=== PATIENT | female | born 1940 | race African-American/Black ===

== ENCOUNTER 2016-09-05 21:34 | Inpatient (IN) | payer MEDICARE, OTHER ==
[2016-09-05] MEDS ORDERED: ACETAMINOPHEN 325 MG TABLET PO ONE (22:08)
[2016-09-05] MEDS ORDERED: ACETAMINOPHEN 325 MG TABLET ONE (22:13)
[2016-09-06] MEDS ORDERED: CEFTRIAXONE 1 GM/D5W RTU 50 ML IV ONE (00:21)
--- NOTE | 2016-09-06 00:22 | ER Document Report ---
ED GI/ - General Mode of Arrival: Wheelchair Information source: Patient TRAVEL OUTSIDE OF THE [place] IN LAST 30 DAYS: No - HPI Patient complains to provider of: Abdominal pain, Flank pain Onset: Other - Refer to HPI notes Associated symptoms: Chills, Fever, Loss of appetite, Odor - urine Similar symptoms previously: No Recently seen / treated by doctor: No <JENA MCCABE - Last Filed: 09/06/16 00:40> <SHERRIE EDMOND - Last Filed: 09/06/16 01:47> <EFFIE DYSON - Last Filed: 09/06/16 08:07> - General Chief Complaint: Fever Stated Complaint: FEVER/CHILLS/POSSIBLE HIGH BLOOD SUGAR Time Seen by Provider: 09/06/16 00:15 Notes: Patient is a 75 year old female presenting to the emergency department for right flank pain and right sided abdominal pain. Patient's symptoms have been onset for 3-4 days. Patient also has had a decreased appetite, increased blood glucose levels, fevers, chills, and an odor to her urine. Patient denies any nausea, vomiting or diarrhea. Patient has a history of UTI and kidney infections , type II diabetes mellitus, cholecystectomy, and hysterectomy. Patient has no known drug allergies. Patient's primary care physician is Dmitri Shaw. (JENA MCCABE) - Related Data Allergies/Adverse Reactions: No Known Allergies Allergy (Verified 08/05/11 15:38) Past Medical History - General Information source: Patient - Social History Smoking Status: Never Smoker Cigarette use (# per day): No Chew tobacco use (# tins/day): No Frequency of alcohol use: None Drug Abuse: None Family History: None Patient has suicidal ideation: No Patient has homicidal ideation: No - Past Medical History Cardiac Medical History: Reports: Hx Hypercholesterolemia, Hx Hypertension Endocrine Medical History: Reports: Hx Diabetes Mellitus Type 2 Renal/ Medical History: Reports: Other - UTI/Kidney infection Past Surgical History: Reports: Hx Cholecystectomy, Hx Hysterectomy, Hx Orthopedic Surgery - "Rods in back" - Immunizations Immunizations up to date: Yes Hx Diphtheria, Pertussis, Tetanus Vaccination: Yes - unknown <JENA MCCABE - Last Filed: 09/06/16 00:40> Review of Systems - Review of Systems Constitutional: See HPI, Chills, Fever EENT: No symptoms reported Cardiovascular: No symptoms reported Respiratory: No symptoms reported Gastrointestinal: See HPI, Abdominal pain, Poor appetite Genitourinary: See HPI, Flank pain Female Genitourinary: No symptoms reported Musculoskeletal: No symptoms reported Skin: No symptoms reported Hematologic/Lymphatic: No symptoms reported Neurological/Psychological: No symptoms reported -: Yes All other systems reviewed and negative <ELIOTJENA - Last Filed: 09/06/16 00:40> Physical Exam - Vital signs Interpretation: Hypertensive, Febrile - General General appearance: Appears well, Alert In distress: Mild - HEENT Head: Normocephalic, Atraumatic Eyes: Normal Pupils: PERRL Mucous membranes: Moist - Respiratory Respiratory status: No respiratory distress Chest status: Nontender Breath sounds: Normal Chest palpation: Normal - Cardiovascular Rhythm: Regular Heart sounds: Normal auscultation Murmur: No - Abdominal Inspection: Normal Distension: No distension Bowel sounds: Normal Tenderness: Tender - right upper quadrant tenderness to palpation Organomegaly: No organomegaly - Back Back: Normal, CVA tenderness - right sided - Extremities General upper extremity: Normal inspection, Normal ROM, Normal strength General lower extremity: Normal inspection, Normal ROM, Normal strength. No: Edema - Neurological Neuro grossly intact: Yes Cognition: Normal Orientation: AAOx4 Gaylord Coma Scale Eye Opening: Spontaneous Chel Coma Scale Verbal: Oriented Gay[place] Coma Scale Motor: Obeys Commands Chel Coma Scale Total: 15 Speech: Normal - Psychological Associated symptoms: Normal affect, Normal mood - Skin Skin Temperature: Warm Skin Moisture: Dry <JENA MCCABE - Last Filed: 09/06/16 00:40> Course - Laboratory Result Diagrams: 09/06/16 00:20 09/06/16 00:20 <ELIOTJENA - Last Filed: 09/06/16 00:40> - Laboratory Result Diagrams: 09/06/16 00:20 09/06/16 00:20 - EKG Interpretation by Sc EKG shows normal: Sinus rhythm, [place], Intervals, QRS Complexes, ST-T Waves Rate: Normal - 76 Rhythm: NSR <SHERRIE EDMOND - Last Filed: 09/06/16 01:47> - Laboratory Result Diagrams: 09/06/16 00:20 09/06/16 00:20 <EFFIE DYSON - Last Filed: 09/06/16 08:07> - Re-evaluation Re-evalutation: 09/06/16 08:06 Patient was signed out to me by Dr. Herrera requesting admission to the hospitalist service for fever and possible pyelonephritis. Discussed with Dr. Cerda with admit the patient to the telemetry unit at this time. Patient was on my independent examination states feeling better still having right flank pain (EFFIE DYSON) - Vital Signs Vital signs: Temp Pulse Resp BP Pulse Ox 97.5 F 71 18 112/59 L 96 09/06/16 07:23 09/06/16 07:23 09/06/16 07:23 09/06/16 07:23 09/06/16 07:23 - Laboratory Laboratory results interpreted by me: 09/06/16 09/06/16 09/06/16 00:20 00:20 00:20 RBC 3.70 L Hgb 11.7 L Hct 34.6 L Seg Neutrophils % 88.9 H Lymphocytes % 5.4 L Absolute Lymphocytes 0.4 L BUN 32 H Est GFR (Non-Af Amer) 51 L Glucose 208 H POC Glucose AST 44 H Urine Protein 100 H Urine Ketones TRACE H Urine Blood MODERATE H Ur Leukocyte Esterase LARGE H 09/06/16 00:37 RBC Hgb Hct Seg Neutrophils % Lymphocytes % Absolute Lymphocytes BUN Est GFR (Non-Af Amer) Glucose POC Glucose 187 H AST Urine Protein Urine Ketones Urine Blood Ur Leukocyte Esterase Discharge <JENA MCCABE - Last Filed: 09/06/16 00:40> <SHERRIE EDMOND - Last Filed: 09/06/16 01:47> - Discharge Admitting Provider: [facility] Unit Admitted: Telemetry <EFFIE DYSON - Last Filed: 09/06/16 08:07> - Discharge Clinical Impression: Pyelonephritis Fever Qualifiers: Fever type: unspecified Qualified Code(s): R50.9 - Fever, unspecified Condition: Stable Disposition: ADMITTED INPATIENT Referrals: DMITRI SHAW MD [Primary Care Provider] - Follow up as needed Scribe Documentation - Scribe Written by Scribe:: Ted Simons, 09/06/16 00:45 acting as scribe for :: Sanjuanita <JENA MCCABE - Last Filed: 09/06/16 00:40>
[2016-09-06 00:51] LABS: PROTHROMBIN TIME 13.9 SEC (11.4-15.4)
[2016-09-06 00:53] LABS: ABSOLUTE LYMPHOCYTES (AUTO) 0.4 10^3/uL (0.5-4.7); ABSOLUTE MONOCYTES (AUTO) 0.4 10^3/uL (0.1-1.4); ABSOLUTE NEUT (AUTO) 7.1 10^3/uL (1.7-8.2); BASOPHILS % (AUTO) 0.2 % (0-2); EOSINOPHILS % (AUTO) 0.1 % (0-6); HEMATOCRIT 34.6 % (36.0-47.0); HEMOGLOBIN 11.7 g/dL (12.0-15.5); HGB HCT DIFFERENCE 0.5; LYMPHOCYTES % (AUTO) 5.4 % (13-45); MEAN CORPUSCULAR HEMOGLOBIN 31.5 pg (27.0-33.4); MEAN CORPUSCULAR HGB CONC 33.7 g/dL (32.0-36.0); MEAN CORPUSCULAR VOLUME 93 fl (80-97); MONOCYTES % (AUTO) 5.4 % (3-13); RED CELL DISTRIBUTION WIDTH 13.9 % (11.5-14.0); SEGMENTED NEUTROPHILS % (AUTO) 88.9 % (42-78)
[2016-09-06 01:06] LABS: APPEARANCE,URINE CLOUDY; BILIRUBIN,URINE NEGATIVE (NEGATIVE); GLUCOSE, URINE NEGATIVE (NEGATIVE); KETONES,URINE TRACE mg/dL (NEGATIVE); LEUKOCYTE ESTERASE,URINE LARGE (NEGATIVE); NITRITE,URINE NEGATIVE (NEGATIVE); PROTEIN,URINE 100 mg/dL (NEGATIVE); URINE SPECIFIC GRAVITY 1.015; UROBILINOGEN,URINE NEGATIVE mg/dL (<2.0)
[2016-09-06 01:12] LABS: ALANINE AMINOTRANSFERASE 34 U/L (9-52); ALBUMIN 3.5 g/dL (3.5-5.0); ALKALINE PHOSPHATASE 95 U/L (38-126); ANION GAP 10 (5-19); ASPARTATE AMINO TRANSFERASE 44 U/L (14-36); BILIRUBIN,DIRECT 0.4 mg/dL (0.0-0.4); BILIRUBIN,TOTAL 0.9 mg/dL (0.2-1.3); BLOOD UREA NITROGEN 32 mg/dL (7-20); CALCIUM 9.6 mg/dL (8.4-10.2); CARBON DIOXIDE 24 mmol/L (22-30); CHLORIDE 104 mmol/L (98-107); CREATININE RESULT 1.05 mg/dL (0.52-1.25); GLUCOSE 208 mg/dL (75-110); POTASSIUM 4.5 mmol/L (3.6-5.0); SODIUM 138.1 mmol/L (137-145)
[2016-09-06] MEDS ORDERED: NORMAL SALINE 1000 ML 1,000 ML IV ONE (01:24)
[2016-09-06] MEDS ORDERED: ACETAMINOPHEN 325 MG TABLET PO ONE (05:36)
[2016-09-06] MEDS ORDERED: NORMAL SALINE 1000 ML 1,000 ML IV PRN (09:35)
[2016-09-06] MEDS ORDERED: ONDANSETRON HCL INJ/PF 4 MG/2 ML SDV IV PRN (09:35)
--- NOTE | 2016-09-06 09:52 | PDOC H&P ---
History of Present Illness Admission Date/PCP: 09/06/16 08:21 DMITRI ANGELES MD Patient complains of: Flank pain History of Present Illness: BRIANNA COOL is a 75 year old female with hypertension and diabetes, started to develop flank pain of about 4 days duration with associated urinary urgency as well as chills or fever. There is no nausea or vomiting. There is no diarrhea. No vaginal discharge or bleeding. Patient had frequent urinary tract infections in the past. Patient went to the emergency room due to persistence of symptoms. Patient denies any hematuria at all. Patient was given intravenous fluids and intravenous antibiotic and felt better. Fever was noted to be 102. She was then referred for admission. Past Medical History Past Medical History: Medication reconciliation pending verification from the patient's pharmacist Cardiac Medical History: Reports: Hyperlipidema, Hypertension Endocrine Medical History: Reports: Diabetes Mellitus Type 2 Renal/ Medical History: Reports: Other - UTI/Kidney infection Past Surgical History Past Surgical History: Reports: Cholecystectomy, Hysterectomy, Orthopedic Surgery - "Rods in back" Social History Information Source: Patient Smoking Status: Never Smoker Frequency of Alcohol Use: None Hx Recreational Drug Use: No Drugs: None Family History Family History: None Parental Family History Reviewed: Yes Children Family History Reviewed: Yes Sibling(s) Family History Reviewed.: Yes Medication/Allergy Home Medications: Glimepiride [Amaryl 4 Mg Tablet] 4 mg PO DAILY 08/05/11 Metformin HCl [Glumetza] 500 mg PO BID 08/05/11 Telmisartan [Micardis] 40 mg PO DAILY 08/05/11 Levofloxacin [Levaquin 500 mg Tablet] 500 mg PO DAILY #7 tablet 01/21/14 Phenazopyridine HCl [Pyridium 200 mg Tablet] 200 mg PO TID #15 tablet 01/21/14 Allergies/Adverse Reactions: No Known Allergies Allergy (Verified 08/05/11 15:38) Review of Systems Constitutional: PRESENT: chills, fever(s). ABSENT: headache(s), weight gain, weight loss Eyes: ABSENT: visual disturbances Ears: ABSENT: hearing changes Nose, Mouth, and Throat: ABSENT: mouth pain, sore throat Cardiovascular: ABSENT: chest pain, dyspnea on exertion, edema, orthropnea, palpitations Respiratory: ABSENT: cough, dyspnea, hemoptysis Gastrointestinal: PRESENT: abdominal pain - Right flank. ABSENT: constipation, diarrhea, hematemesis, hematochezia, melena, nausea, vomiting Genitourinary: PRESENT: difficulty urinating, dysuria. ABSENT: hematuria Musculoskeletal: ABSENT: joint swelling Integumentary: ABSENT: pruritus, rash, wounds Neurological: ABSENT: abnormal gait, abnormal speech, confusion, dizziness, focal weakness, syncope Psychiatric: ABSENT: anxiety, depression, homidical ideation, suicidal ideation Endocrine: ABSENT: cold intolerance, heat intolerance, polydipsia, polyuria Hematologic/Lymphatic: ABSENT: easy bleeding, easy bruising Physical Exam Vital Signs: Temp Pulse Resp BP Pulse Ox 97.5 F 71 18 112/59 L 96 09/06/16 07:23 09/06/16 07:23 09/06/16 07:23 09/06/16 07:23 09/06/16 07:23 General appearance: PRESENT: no acute distress, cooperative Head exam: PRESENT: atraumatic, normocephalic Eye exam: PRESENT: conjunctiva pink, EOMI, PERRLA. ABSENT: scleral icterus Ear exam: PRESENT: normal external ear exam Mouth exam: PRESENT: moist, neck supple, tongue midline Neck exam: ABSENT: carotid bruit, JVD, lymphadenopathy, thyromegaly Respiratory exam: PRESENT: clear to auscultation ela. ABSENT: rales, rhonchi, wheezes Cardiovascular exam: PRESENT: RRR. ABSENT: diastolic murmur, rubs, systolic murmur Pulses: PRESENT: normal dorsalis pedis pul Vascular exam: PRESENT: normal capillary refill GI/Abdominal exam: PRESENT: normal bowel sounds, soft, tenderness - CVA tenderness noted on the right. ABSENT: distended, guarding, mass, organolmegaly , rebound Rectal exam: PRESENT: deferred Extremities exam: PRESENT: full ROM, other - Trace pretibial edema. ABSENT: calf tenderness, clubbing Neurological exam: PRESENT: alert, awake, oriented to person, oriented to place , oriented to time, oriented to situation, CN II-XII grossly intact. ABSENT: motor sensory deficit Psychiatric exam: PRESENT: appropriate affect, normal mood. ABSENT: homicidal ideation, suicidal ideation Skin exam: PRESENT: dry, intact, warm. ABSENT: cyanosis, rash Assessment & Plan - Diagnosis (1) Pyelonephritis Is this a current diagnosis for this admission?: Yes (2) Essential hypertension Is this a current diagnosis for this admission?: Yes (3) Hyperlipidemia Qualifiers: Hyperlipidemia type: unspecified Qualified Code(s): E78.5 - Hyperlipidemia, unspecified Is this a current diagnosis for this admission?: Yes (4) Type 2 diabetes mellitus Qualifiers: Diabetes mellitus complication status: with unspecified complications Diabetes mellitus detention insulin use: without detention use Qualified Code(s): E11.8 - Type 2 diabetes mellitus with unspecified complications - Time Time Spent: 30 to 50 Minutes - Plan Summary Plan Summary: Patient will be admitted to observation. I will gently hydrate the patient with normal saline. Urine culture will be done and patient will be given intravenous antibiotic with Invanz. DVT prophylaxis with Lovenox will be placed. Analgesics and antipyretics will be administered. Further testing depends on the initial evaluations outlined above.
[2016-09-06] MEDS ORDERED: (PENDING PHARMACY ID) (Telmisartan [Micardis 40 Mg Tablet] 40 MG) PO SCH (10:00)
[2016-09-06] MEDS ORDERED: ERTAPENEM SODIUM INJ 1 GM VIAL IV SCH (10:00)
--- NOTE | 2016-09-06 10:46 | EKG REPORT ---
SEVERITY:- NORMAL ECG - SINUS RHYTHM : Confirmed by: Mike Reeves 06-Sep-2016 10:45:53
[2016-09-06] MEDS ORDERED: ENOXAPARIN SODIUM INJ 40 MG/0.4 ML DISP.SYRIN SUBCUT ONE (12:00)
[2016-09-06] MEDS: LOSARTAN POTASSIUM 50 MG TABLET PO SCH (13:02)
[2016-09-06] MEDS ORDERED: DEXTROSE 40% GEL 15 GM TUBE X 2 PO PRN (15:48)
[2016-09-06] MEDS ORDERED: GLUCAGON,HUMAN RECOMB 1 MG INJ IM PRN (15:48)
[2016-09-06] MEDS ORDERED: DEXTROSE 50%-WATER SYRINGE 12.5 GM/25 ML DOSE IV PRN (15:48)
[2016-09-06] MEDS ORDERED: DEXTROSE 40% GEL 15 GM TUBE PO PRN (15:48)
[2016-09-06] MEDS ORDERED: DEXTROSE 50%-WATER SYRINGE 25 GM/50 ML DOSE IV PRN (15:48)
[2016-09-06] MEDS: DOCUSATE SODIUM 100 MG CAPSULE PO SCH (18:11)
[2016-09-06] MEDS: ACETAMINOPHEN 325 MG TABLET PO PRN (20:11)
[2016-09-07 05:59] LABS: ANION GAP 10 (5-19); BLOOD UREA NITROGEN 19 mg/dL (7-20); CALCIUM 9.1 mg/dL (8.4-10.2); CARBON DIOXIDE 23 mmol/L (22-30); CHLORIDE 109 mmol/L (98-107); CREATININE RESULT 0.77 mg/dL (0.52-1.25); GLUCOSE 184 mg/dL (75-110); POTASSIUM 4.5 mmol/L (3.6-5.0); SODIUM 142.4 mmol/L (137-145)
[2016-09-07] MEDS: LANSOPRAZOLE 30 MG TAB.RAP.DR PO SCH (06:13)
[2016-09-07] MEDS: INSULIN REG, HUMAN 100 UNIT/ML 3 ML VIAL (PYX) SUBCUT PRN ×2 (08:29→12:37)
[2016-09-07] MEDS: ENOXAPARIN SODIUM INJ 40 MG/0.4 ML DISP.SYRIN SUBCUT SCH (08:30)
[2016-09-07] MEDS: ACETAMINOPHEN 325 MG TABLET PO PRN (08:52)
[2016-09-07] MEDS: DOCUSATE SODIUM 100 MG CAPSULE PO SCH ×2 (09:35→17:01)
[2016-09-07] MEDS: CEFTRIAXONE 1 GM/D5W RTU 50 ML IV SCH (09:35)
--- NOTE | 2016-09-07 11:07 | PDOC PROGRESS REPORT ---
Subjective Progress Note for:: 09/07/16 Subjective:: Patient still has the flank pain but less. Still with fever last night but trending down. Denies any diarrhea. Tolerating oral intake well. No nausea or vomiting, no shortness of breath, no PND orthopnea. Physical Exam Vital Signs: Temp Pulse Resp BP Pulse Ox 99.0 F 62 18 158/62 H 100 09/07/16 07:30 09/07/16 07:30 09/07/16 07:30 09/07/16 07:30 09/07/16 07:30 Intake & Output 09/06/16 09/07/16 09/08/16 06:59 06:59 06:59 Intake Total 1441 Balance 1441 Weight 63 kg General appearance: PRESENT: no acute distress, cooperative Head exam: PRESENT: normocephalic Mouth exam: PRESENT: moist, neck supple Neck exam: ABSENT: JVD Respiratory exam: PRESENT: clear to auscultation ela. ABSENT: rhonchi, wheezes Cardiovascular exam: PRESENT: RRR. ABSENT: gallop GI/Abdominal exam: PRESENT: soft, other - CVA tenderness on the right, mild. ABSENT: distended, tenderness Extremities exam: ABSENT: pedal edema Neurological exam: PRESENT: alert, awake, oriented to situation Skin exam: PRESENT: dry, warm. ABSENT: cyanosis Results Laboratory Results: 09/07/16 05:21 09/07/16 05:21 Sodium 142.4 Potassium 4.5 Chloride 109 H Carbon Dioxide 23 Anion Gap 10 BUN 19 Creatinine 0.77 Est GFR ( Amer) > 60 Est GFR (Non-Af Amer) > 60 Glucose 184 H Calcium 9.1 Assessment & Plan - Diagnosis (1) Pyelonephritis Is this a current diagnosis for this admission?: Yes (2) Essential hypertension Is this a current diagnosis for this admission?: Yes (3) Hyperlipidemia Qualifiers: Hyperlipidemia type: unspecified Qualified Code(s): E78.5 - Hyperlipidemia, unspecified Is this a current diagnosis for this admission?: Yes (4) Type 2 diabetes mellitus Qualifiers: Diabetes mellitus complication status: with unspecified complications Diabetes mellitus long term care pharmacist insulin use: without long term care pharmacist use Qualified Code(s): E11.8 - Type 2 diabetes mellitus with unspecified complications; Z79.4 - director long term care (current) use of insulin - Time Time Spent with patient: 15-24 minutes - Plan Summary Plan Summary: Continue current antibiotics. Continue gentle IV hydration. Continue supportive care. Recheck electrolytes in the morning. If patient is afebrile, we will discharge in the morning.
[2016-09-07] MEDS: LOSARTAN POTASSIUM 50 MG TABLET PO SCH (12:37)
[2016-09-07] MEDS: TRAMADOL HCL 50 MG TABLET PO PRN (19:46)
[2016-09-08] MEDS: TRAMADOL HCL 50 MG TABLET PO PRN (02:29)
[2016-09-08 05:24] LABS: ANION GAP 10 (5-19); BLOOD UREA NITROGEN 13 mg/dL (7-20); CALCIUM 8.8 mg/dL (8.4-10.2); CARBON DIOXIDE 21 mmol/L (22-30); CHLORIDE 110 mmol/L (98-107); CREATININE RESULT 0.68 mg/dL (0.52-1.25); GLUCOSE 149 mg/dL (75-110); POTASSIUM 4.1 mmol/L (3.6-5.0); SODIUM 141.2 mmol/L (137-145)
[2016-09-08] MEDS: LANSOPRAZOLE 30 MG TAB.RAP.DR PO SCH (06:41)
[2016-09-08] MEDS: CEFTRIAXONE 1 GM/D5W RTU 50 ML IV SCH (09:11)
[2016-09-08] MEDS: ENOXAPARIN SODIUM INJ 40 MG/0.4 ML DISP.SYRIN SUBCUT SCH (09:12)
[2016-09-08] MEDS: DOCUSATE SODIUM 100 MG CAPSULE PO SCH (09:12)
--- NOTE | 2016-09-08 12:09 | PDOC DISCHARGE SUMMARY ---
General - Admit/Disc Date/PCP Admission Date/Primary Care Provider: 09/07/16 14:24 DMITRI ANGELES MD Discharge Date: 09/08/16 - Discharge Diagnosis (1) Pyelonephritis Is this a current diagnosis for this admission?: Yes (2) Essential hypertension Is this a current diagnosis for this admission?: Yes (3) Hyperlipidemia Is this a current diagnosis for this admission?: Yes - Additional Information Resuscitation Status: Full Code Discharge Diet: Cardiac - Low-fat low-salt, Diabetic - no concentrated sweets Discharge Activity: Activity As Tolerated, Balance Activity w/Rest, Slowly Increase Activity Home Medications: Donepezil HCl [Aricept] 10 mg PO QHS 09/06/16 Glyburide [Diabeta 5 mg Tablet] 5 mg PO BID 09/06/16 Metformin HCl [Glucophage] 500 mg PO BID 09/06/16 Pravastatin Sodium [Pravachol] 20 mg PO QHS 09/06/16 Telmisartan [Micardis 40 mg Tablet] 40 mg PO DAILY 09/06/16 Ciprofloxacin HCl [Cipro 500 mg Tablet] 500 mg PO BID #22 tablet 09/08/16 Tramadol HCl [Ultram 50 mg Tablet] 50 mg PO Q6HP PRN #20 tablet 09/08/16 History of Present Illness Patient complains of: Fever and flank pain History of Present Illness: BRIANNA COOL is a 75 year old female with hypertension and diabetes, started to develop flank pain of about 4 days duration with associated urinary urgency as well as chills or fever. There is no nausea or vomiting. There is no diarrhea. No vaginal discharge or bleeding. Patient had frequent urinary tract infections in the past. Patient went to the emergency room due to persistence of symptoms. Patient denies any hematuria at all. Patient was given intravenous fluids and intravenous antibiotic and felt better. Fever was noted to be 102. She was then referred for admission. Hospital Course Hospital Course: The patient was admitted to the medical floor. The patient was started on intravenous fluids. Intravenous antibiotic was started. Urine culture was performed. Analgesics was given for pain. Patient's fever eventually resolved with antibiotics. Patient's flank pain started to improve. Patient is able to tolerate oral intake well without any nausea or vomiting. There is no diarrhea. WBC was normal. Urine culture eventually grew E. coli sensitive to quinolones sulfa and cephalosporins. The rest of the hospital stays essentially unremarkable. Patient improved patient was eventually discharged home with above instructions. Return to the emergency room if pain and discomfort increases or if nausea and vomiting occurs, or fever recurs. Physical Exam Vital Signs: Temp Pulse Resp BP Pulse Ox 97.8 F 60 16 125/53 L 100 09/08/16 07:25 09/08/16 07:25 09/08/16 07:25 09/08/16 07:25 09/08/16 07:25 Intake & Output 09/07/16 09/08/16 09/09/16 06:59 06:59 06:59 Intake Total 2830 Balance 2830 Weight 63 kg General appearance: PRESENT: no acute distress, cooperative Head exam: PRESENT: normocephalic Eye exam: PRESENT: EOMI Mouth exam: PRESENT: moist, neck supple Neck exam: ABSENT: JVD Respiratory exam: PRESENT: clear to auscultation ela. ABSENT: rhonchi, wheezes Cardiovascular exam: PRESENT: RRR. ABSENT: gallop GI/Abdominal exam: PRESENT: soft, other - Mild CVA tenderness in the right Extremities exam: ABSENT: pedal edema Neurological exam: PRESENT: alert, awake, oriented to situation Skin exam: PRESENT: dry, warm. ABSENT: cyanosis Results Laboratory Results: 09/08/16 04:15 09/08/16 04:15 Sodium 141.2 Potassium 4.1 Chloride 110 H Carbon Dioxide 21 L Anion Gap 10 BUN 13 Creatinine 0.68 Est GFR ( Amer) > 60 Est GFR (Non-Af Amer) > 60 Glucose 149 H Calcium 8.8 Qualifiers PATEINT BEING DISCHARGED WITH ANY OF THE FOLLOWING DIAGNOSIS?: No Plan Discharge Plan: Follow-up with primary care physician in 1 week Time Spent: Less than 30 Minutes
--- NOTE | 2016-09-08 12:12 | PDOC DISCHARGE SUMMARY ---
General - Admit/Disc Date/PCP Admission Date/Primary Care Provider: 09/07/16 14:24 DMITRI ANGELES MD Discharge Date: 09/08/16 - Discharge Diagnosis (1) Pyelonephritis Is this a current diagnosis for this admission?: Yes (2) Essential hypertension Is this a current diagnosis for this admission?: Yes (3) Hyperlipidemia Is this a current diagnosis for this admission?: Yes - Additional Information Resuscitation Status: Full Code Discharge Diet: Cardiac - Low-fat low-salt, Diabetic - no concentrated sweets Discharge Activity: Activity As Tolerated, Balance Activity w/Rest, Slowly Increase Activity Home Medications: Donepezil HCl [Aricept] 10 mg PO QHS 09/06/16 Glyburide [Diabeta 5 mg Tablet] 5 mg PO BID 09/06/16 Metformin HCl [Glucophage] 500 mg PO BID 09/06/16 Pravastatin Sodium [Pravachol] 20 mg PO QHS 09/06/16 Telmisartan [Micardis 40 mg Tablet] 40 mg PO DAILY 09/06/16 Ciprofloxacin HCl [Cipro 500 mg Tablet] 500 mg PO BID #22 tablet 09/08/16 Tramadol HCl [Ultram 50 mg Tablet] 50 mg PO Q6HP PRN #20 tablet 09/08/16 History of Present Illness Patient complains of: See other discharge summary History of Present Illness: See other discharge summary Hospital Course Hospital Course: See other discharge summary Physical Exam Vital Signs: Temp Pulse Resp BP Pulse Ox 97.8 F 60 16 125/53 L 100 09/08/16 07:25 09/08/16 07:25 09/08/16 07:25 09/08/16 07:25 09/08/16 07:25 Intake & Output 09/07/16 09/08/16 09/09/16 06:59 06:59 06:59 Intake Total 2830 Balance 2830 Weight 63 kg See under discharge summary Results Laboratory Results: 09/08/16 04:15 09/08/16 04:15 Sodium 141.2 Potassium 4.1 Chloride 110 H Carbon Dioxide 21 L Anion Gap 10 BUN 13 Creatinine 0.68 Est GFR ( Amer) > 60 Est GFR (Non-Af Amer) > 60 Glucose 149 H Calcium 8.8 Qualifiers PATEINT BEING DISCHARGED WITH ANY OF THE FOLLOWING DIAGNOSIS?: No Plan Discharge Plan: See other discharge summary
[2016-09-08 13:28] VITALS: BP 118/55
[2016-09-08] MEDS ORDERED: ONDANSETRON HCL INJ/PF 4 MG/2 ML SDV IV PRN (14:37)
--- NOTE | 2016-09-19 07:26 | Progress Note ---
Provider Note Provider Note: ADDENDUM TO DISCHARGE SUMMARY: FINAL DIAGNOSIS: ACUTE PYELONEPHRITIS
== END 2016-09-08 15:58 | disposition home or self-care (01) | DRG 690 ==
LOC: ER 21:34 → EH 09-06 08:21 → UNDOADMIN 09-06 08:21 → INTOOBSV 09-06 09:35 → EH 09-06 09:35 → 4N 09-06 11:27 → OBSVTOIN 09-07 14:24
DX: N10 Acute pyelonephritis (principal); I10 Essential (primary) hypertension; E78.5 Hyperlipidemia, unspecified; E11.9 Type 2 diabetes mellitus without complications; B96.20 Unspecified Escherichia coli [E. coli] as the cause of diseases classified elsewhere; E78.00 Pure hypercholesterolemia, unspecified; Z90.49 Acquired absence of other specified parts of digestive tract; Z90.710 Acquired absence of both cervix and uterus; Z79.4 Long term (current) use of insulin; Z79.899 Other long term (current) drug therapy
CPT/HCPCS: 36415; 80048; 80053; 81001; 82962; 83036; 83605; 85025; 85610; 87040; 87086; 87088; 87186; 93005; 93010; 96361; 96365; 99285; G0378; J0696; J1650; J1815; J7030

== ENCOUNTER → 2016-12-01 | Outpatient (CLI) | payer MEDICARE, OTHER ==
--- NOTE | 2016-12-01 14:04 | WOMENS IMAGING REPORT ---
EXAM DESCRIPTION: BILAT SCREENING MAMMO W/CAD COMPLETED DATE/TIME: 12/01/2016 1:19 pm REASON FOR STUDY: ROUTINE SCREENING; Z12.31 Z12.31 ENCNTR SCREEN MAMMOGRAM FOR MALIGNANT NEOPLASM O F MELISSA COMPARISON: 2011 TECHNIQUE: Standard craniocaudal and mediolateral oblique views of each breast recorded using [employer] l acquisition. LIMITATIONS: None. FINDINGS: No masses, calcifications or architectural distortion. No areas of suspicion. Read with the assistance of CAD. .[facility] - R2 Cenova Version 1.3 .[facility] - R2 Cenova Version 1.3 .[facility] - R2 Cenova Version 2.4 .[facility] [place] - R2 Cenova Version 2.4 .[facility] - R2 Child Care Development Specialist Version 9.2 IMPRESSION: NORMAL MAMMOGRAM. BIRADS 1. BREAST DENSITY: b. There are scattered areas of fibroglandular density. BIRAD: 1 NEGATIVE RECOMMENDATION: ROUTINE SCREENING COMMENT: The patient has been notified of the results by letter per SA requirements. Additional no tification policies are in place for contacting patient with suspicious or incomplete findings. Quality ID #[id number]: The [employer] recommends an annual screening mammogram for women aged 40 years or over. This facility utilizes a reminder system to ensure that all patients receive reminder letters, and/or direct phone calls for appointments. This includes reminders for routine scr eening mammograms, diagnostic mammograms, or other Breast Imaging Interventions when appropriate. Th is patient will be placed in the appropriate reminder system. The [employer] (ACR) has developed recommendations for screening MRI of the breast s in certain patient populations, to be used in conjunction with mammography. Breast MRI surveillanc e may be appropriate for women with more than 20% lifetime risk of developing breast cancer as deter mined by genetic testing, significant family history of the disease, or history of mantle radiation f or Hodgkins Disease. ACR Practice Guidelines 2008. TECHNICAL DOCUMENTATION: FINDING NUMBER: (1) ASSESSMENT: (1) JOB ID: [id number] [employer]- All Rights Reserved
== END ==
LOC: WI 10:22
PROVIDERS: ATTEND Internal Medicine
DX: Z12.31 Encounter for screening mammogram for malignant neoplasm of breast (principal)
CPT/HCPCS: 77067; G0202

== ENCOUNTER 2017-01-07 17:05 | Emergency (ER) | payer MEDICARE, OTHER ==
[2017-01-07 17:16] VITALS: BP 146/62
[2017-01-07] MEDS ORDERED: PREDNISONE 20 MG TABLET PO ONE (18:04)
[2017-01-07] MEDS ORDERED: VALACYCLOVIR HCL 500 MG TABLET PO ONE (18:04)
--- NOTE | 2017-01-07 18:04 | ER Document Report ---
ED Skin Rash/Insect Bite/Abscs - General Chief Complaint: Rash Stated Complaint: RASH Time Seen by Provider: 01/07/17 17:26 TRAVEL OUTSIDE OF THE [place] IN LAST 30 DAYS: No - HPI Patient complains to provider of: Skin rash/lesion Onset: Last week Onset/Duration: Persistent Quality of pain: Burning Severity: Moderate Skin Character: Erythema, Vesicular Skin Temperature: Warm Quality of rash: Painful, Burning Exacerbated by: Denies Relieved by: Denies Similar symptoms previously: No Recently seen / treated by doctor: Yes - urgent care put her on triamcinolone - Related Data Allergies/Adverse Reactions: No Known Allergies Allergy (Verified 01/07/17 17:15) Past Medical History - Social History Smoking Status: Unknown if Ever Smoked Family History: None - Past Medical History Cardiac Medical History: Reports: Hx Hypercholesterolemia, Hx Hypertension Endocrine Medical History: Reports: Hx Diabetes Mellitus Type 2 Renal/ Medical History: Denies: Hx Peritoneal Dialysis Past Surgical History: Reports: Hx Cholecystectomy, Hx Hysterectomy, Hx Orthopedic Surgery - "Rods in back" - Immunizations Immunizations up to date: Yes Hx Diphtheria, Pertussis, Tetanus Vaccination: Yes - unknown Review of Systems - Review of Systems Constitutional: No symptoms reported Skin: See HPI -: Yes All other systems reviewed and negative Physical Exam - Vital signs Vitals: Temp Pulse Resp BP Pulse Ox 97.9 F 69 16 146/62 H 98 01/07/17 17:14 01/07/17 17:14 01/07/17 17:14 01/07/17 17:14 01/07/17 17:14 - General General appearance: Appears well, Alert In distress: None - HEENT Head: Normocephalic, Atraumatic Eyes: Normal. No: Pale conjunctiva, Periorbital ecchymosis, Periorbital edema, Scleral icterus, Tears, Other - Skin Skin irregularity: Erythema Location of irregularity: Extremities - bilateral C5 and C6 distribution Character of irregularity: Vesicular Course - Re-evaluation Re-evalutation: 01/07/17 18:04 Patient is a 68-year-old female who is hemodynamically stable, no acute distress and afebrile. Presentation today is consistent with shingles. Will initiate on prednisone and valacyclovir and can follow-up with primary care next week. Patient agrees with plan. Stable for discharge home - Vital Signs Vital signs: Temp Pulse Resp BP Pulse Ox 97.9 F 69 16 146/62 H 98 01/07/17 17:14 01/07/17 17:14 01/07/17 17:14 01/07/17 17:14 01/07/17 17:14 Discharge - Discharge Clinical Impression: Shingles Qualifiers: Herpes zoster complications: without complications Qualified Code(s): B02.9 - Zoster without complications Condition: Good Disposition: HOME, SELF-CARE Instructions: [facility] ([facility]) Prescriptions: Prednisone [Deltasone 20 mg Tablet] 2 tab PO DAILY 7 Days tablet Valacyclovir HCl [Valacyclovir] 1,000 mg PO TID 7 Days tablet Referrals: DMITRI ANGELES MD [Primary Care Provider] - Follow up in 1 week
== END 2017-01-07 18:24 | disposition home or self-care (01) ==
LOC: ER 17:05
DX: B02.9 Zoster without complications (principal); E11.9 Type 2 diabetes mellitus without complications; I10 Essential (primary) hypertension
CPT/HCPCS: 99282; A9270 ×2; J7512

== ENCOUNTER → 2019-02-17 | Outpatient (CLI) | payer MEDICARE, OTHER ==
--- NOTE | 2019-02-17 15:44 | RADIOLOGY REPORT (SQ) ---
EXAM DESCRIPTION: MRI RT UPPER JOINT WITHOUT COMPLETED DATE/TIME: 02/17/2019 2:47 pm REASON FOR STUDY: M25.531 PAIN IN RIGHT WRIST M25.531 PAIN IN RIGHT WRIST COMPARISON: None. TECHNIQUE: RIGHT wrist images acquired and stored on PACS. Multiplanar images include fat sensitive sequences as T1, fluid sensitive sequences as FST2/STIR, cartilage sensitive sequences as FSPD, grad ient echo sequences. LIMITATIONS: Motion artifact on the axial images FINDINGS: BONE MARROW: No alteration of signal to suggest marrow replacement or edema. No occult fra cture. No large osteophytes. CARPAL ALIGNMENT AND ARTICULATION: Normal capitolunate angle. Mild negative ulnar variance on huang l image 19. There is widening of the scapholunate interval on coronal image 17. Mild joint space na rrowing and bony spurring at the 1st carpometacarpal joint. EFFUSION: None noted. No loose bodies. SCAPHOLUNATE LIGAMENT: Torn, widening of the scapholunate interval LUNATE-TRIQUETRAL LIGAMENT: Intact without tear. TFC COMPLEX: Grossly intact EXTRINSIC LIGAMENTS AND DISTAL RADIO-ULNAR JOINT: Dorsal and volar distal RUJ intact without subluxat ion of the distal ulna. 1-6 EXTENSOR COMPARTMENTS: Normal. Specifically no tendinopathy of the abductor pollicis longus or ex tensor pollicis brevis to suggest de Quervain's Syndrome. CARPAL TUNNEL AND MEDIAN NERVE: Normal volume and morphology of the carpal tunnel proximally at the l evel of the radiocarpal joint and distally at the hook of the hamate. No thickening or signal alterat ion of the median nerve. OTHER: Subcortical cysts are present in the lunate bone and in the distal ulna IMPRESSION: Widening of the scapholunate interval from ligamentous tear. Subcortical cysts in the lunate and distal ulna from osteoarthritis TECHNICAL DOCUMENTATION: JOB ID: [id number] [employer]- All Rights Reserved Reading location - IP/workstation name: [email or web address]
== END ==
LOC: RAD 13:39
PROVIDERS: ATTEND Orthopaedic Surgery Hand Surgery
DX: M19.031 Primary osteoarthritis, right wrist (principal); M25.531 Pain in right wrist